=== PATIENT | female | born 1985 ===

== ENCOUNTER 2016-12-04 01:42 | Emergency (ER) | payer SELFPAY ==
[2016-12-04] MEDS ORDERED: Sodium Chloride 0.9% 1,000 ML IV STA (02:12)
[2016-12-04] MEDS ORDERED: Sodium Chloride 0.9% 1,000 ML ONE (02:27)
[2016-12-04 02:38] LABS: BASO # 0.1 K/uL (0.0-0.2); BASO % 0.6 % (0.0-2.0); EOS # 0.1 K/uL (0.0-0.7); EOS % 0.6 % (0.0-4.0); HEMATOCRIT 39.5 % (34.0-47.0); LYMPH # 2.3 K/uL (1.0-4.3); LYMPH % 19.6 % (20.0-40.0); MEAN CELL VOLUME 82.2 fL (81.0-99.0); MEAN CORPUSCULAR HEMOGLOBIN 27.9 pg (27.0-31.0); MEAN CORPUSCULAR HGB CONC 33.9 g/dL (33.0-37.0); MEAN PLATELET VOLUME 9.5 fL (7.2-11.7); MONO # 1.2 K/uL (0.0-0.8); MONO % 9.8 % (0.0-10.0); RED CELL DISTRIBUTION WIDTH 15.7 % (11.5-14.5)
[2016-12-04 02:42] LABS: RBC URINE 16 /hpf (0-3); URINE BACTERIA MANY (<OCC); URINE BILIRUBIN NEGATIVE (NEGATIVE); URINE BLOOD 2+ (NEGATIVE); URINE COLOR Yellow (YELLOW); URINE GLUCOSE (UA) NORMAL (Normal); URINE KETONE TRACE mg/dL (NEGATIVE); URINE LEUKOCYTE ESTERASE 3+ Leu/uL (Negative); URINE PROTEIN NEGATIVE (NEGATIVE); URINE UROBILINOGEN NORMAL mg/dL (0.2-1.0); WBC URINE 182 /hpf (0-5)
[2016-12-04 02:44] LABS: CHLORIDE 101 mmol/L (98-107); POTASSIUM 3.8 mmol/L (3.6-5.2); SODIUM 139 mmol/L (132-148)
[2016-12-04 02:46] LABS: BILIRUBIN,TOTAL 0.4 mg/dL (0.2-1.3); GFR AFRICAN-AMERICAN > 60
[2016-12-04 02:47] LABS: ALB/GLOB RATIO 1.2 (1.0-2.1); ALKALINE PHOSPHATASE 76 U/L (38-126); ALT/SGPT 39 U/L (9-52); AST/SGOT 31 U/L (14-36); BLOOD UREA NITROGEN 9 mg/dL (7-17); CALCIUM 9.3 mg/dl (8.6-10.4); CARBON DIOXIDE 22 mmol/L (22-30); GLUCOSE,RANDOM 91 mg/dL (65-105); TOTAL PROTEIN 8.3 g/dL (6.3-8.3)
[2016-12-04] MEDS ORDERED: Magnesium Citrate Oral SOL (300 ml) PO STA (03:36)
[2016-12-04] MEDS ORDERED: Magnesium Citrate Oral SOL (300 ml) ONE (04:04)
[2016-12-04] MEDS ORDERED: Lidocaine 2% Jelly (Uro-Jet) ONE (04:45)
[2016-12-04 04:53] VITALS: RESP 18
--- NOTE | 2016-12-04 05:24 | C.PDOC ---
History Of Present Illness 31 year old female with a history of gastroparesis and constipation presents to the ED with complaints of abdominal cramping and constipation for one week. She notes she is visiting from [place]. Patient states she is taking opiates for other pains and has been taking OTC medications with no relief of current symptoms. She denies vomiting, fever, or other complaints at this time. Chief Complaint (Nursing): Abdominal Pain History Per: Patient History/Exam Limitations: no limitations Onset/Duration Of Symptoms: Days (1 week ) Current Symptoms Are (Timing): Still Present Location Of Pain/Discomfort: Other (lower abdomen ) Radiation Of Pain To:: None Quality Of Discomfort: Cramping Associated Symptoms: Constipation. denies: Fever, Chills, Nausea, Vomiting, Diarrhea Exacerbating Factors: None Alleviating Factors: None Recent travel outside of the [place]: Yes ([place]) Abnormal Vaginal Bleeding: No Past Medical History Reviewed: Historical Data, Nursing Documentation, Vital Signs Vital Signs: Last Vital Signs Temp 98.4 F 12/04/16 01:55 Pulse 92 H 12/04/16 04:52 Resp 18 12/04/16 04:52 BP 111/74 12/04/16 01:55 Pulse Ox 99 12/04/16 05:27 Family History: States: Unknown Family Hx - Social History Hx Alcohol Use: Yes Hx Substance Use: No - Immunization History Hx Tetanus Toxoid Vaccination: No Hx Influenza Vaccination: No Hx Pneumococcal Vaccination: No Review Of Systems Constitutional: Negative for: Fever, Chills Gastrointestinal: Positive for: Abdominal Pain, Constipation. Negative for: Nausea, Vomiting, Diarrhea Physical Exam - Physical Exam Appears: Non-toxic, No Acute Distress Skin: Warm, Dry Head: Atraumatic, Normacephalic Eye(s): bilateral: Normal Inspection, PERRL, EOMI Oral Mucosa: Moist Neck: Supple Chest: Symmetrical, No Deformity Cardiovascular: Rhythm Regular, No Murmur Respiratory: Normal Breath Sounds, No Rales, No Rhonchi, No Wheezing Gastrointestinal/Abdominal: Soft, Tenderness (diffuse lower abdominal tenderness ), No Distention, No Guarding, No Rebound Neurological/Psych: Oriented x3 ED Course And Treatment - Laboratory Results Result Diagrams: 12/04/16 02:34 12/04/16 02:34 O2 Sat by Pulse Oximetry: 99 (RA) - Other Rad Obstructive Abdominal Series X-Ray: Interpreted by Me, Viewed By Me Interpretation: Moderate fecal impaction. Progress Note: Obstructive abdomen series and labs were ordered. Patient was given fleet enema and IV fluids. Medical Decision Making Medical Decision Making: XR of abdomen shows fecal impaction. UA results are consistent with UTI. Disposition - Disposition Disposition Time: 06:44 Condition: STABLE Forms: [facility] ([employer]) - Clinical Impression Clinical Impression: Constipation, UTI (urinary tract infection), Abdominal pain - PA / SOFTWARE ANALYST / Resident Statement MD/DO has reviewed & agrees with the documentation as recorded. - Scribe Statement The provider has reviewed the documentation as recorded by the Scribe Makayla Mirza All medical record entries made by the Scribe were at my direction and personally dictated by me. I have reviewed the chart and agree that the record accurately reflects my personal performance of the history, physical exam, medical decision making, and the department course for this patient. I have also personally directed, reviewed, and agree with the discharge instructions and disposition. Physician Patient Turnover Patient Signed Over To: Zoe Alvarez Handoff Comments: Patient is taking Golitely, waiting for BM
[2016-12-04] MEDS ORDERED: Peg-Electrolyte Oral Soln 4L (Golytely) PO STA (05:47)
[2016-12-04 07:55] VITALS: BP 112/69; PULSE 79; TEMP 98; O2SAT 100
--- NOTE | 2016-12-04 08:52 | RAD ---
PROCEDURE: Radiographs of the chest and abdomen (obstructive series) HISTORY: abd pain/constipation COMPARISON: No prior. TECHNIQUE: AP radiograph of the chest, with upright and supine radiographs of the abdomen. FINDINGS: CHEST: Lungs: Clear. Cardiovascular: Normal size heart. No pulmonary vascular congestion. Pleura: No pleural fluid. No pneumothorax. Other findings: None. ABDOMEN AND PELVIS: Bowel: Unremarkable bowel gas pattern. No evidence of mechanical obstruction. Free air: None. Bones: Unremarkable. Other findings: None. IMPRESSION: Unremarkable radiographs of chest and abdomen. No evidence of mechanical bowel obstruction.
== END 2016-12-04 08:12 | disposition home or self-care (01) ==
LOC: C.ER 01:42
DX: N39.0 Urinary tract infection, site not specified (principal); K59.00 Constipation, unspecified; R10.9 Unspecified abdominal pain
CPT/HCPCS: 74022; 80053; 81001; 83690; 84703; 85025; 96360; 99285; J7040